=== PATIENT | male | born 1970 | race Two or more races ===

== ENCOUNTER 2018-02-13 23:01 | Emergency (ER) | payer SELFPAY ==
[~2018-02-13] VITALS: Ht 167.6 cm; Wt 81.0 kg
[2018-02-13 23:10] VITALS: BP 134/77
[2018-02-14] MEDS ORDERED: ALBUTEROL/IPRATROPIUM 2.5MG/0.5MG, 3 ML NPPB ONE (00:30)
[2018-02-14 00:33] LABS: BASOPHILS # (AUTO) 0.04 x10^3/uL (0-0.1); BASOPHILS % (AUTO) 0 % (0-1); EOSINOPHILS # (AUTO) 0.47 x10^3/uL (0-0.4); EOSINOPHILS % (AUTO) 4 % (1-7); LYMPHOCYTES # (AUTO) 2.26 x10^3/uL (1-3.4); LYMPHOCYTES % (AUTO) 19 % (22-44); MD NO; MEAN CORPUSCULAR HEMOGLOBIN 31.4 pg (27.5-34.5); MEAN CORPUSCULAR HGB CONC 33.7 g/dL (33.2-36.2); MEAN PLATELET VOLUME 9.1 fL (7.4-10.4); MONOCYTES # (AUTO) 0.61 x10^3/uL (0.2-0.8); MONOCYTES % (AUTO) 5 % (2-9); NEUTROPHILS # (AUTO) 8.68 x10^3/uL (1.8-6.8); NEUTROPHILS % (AUTO) 72 % (42-75); PLATELET COUNT 239 x10^3/uL (130-400)
[2018-02-14 00:34] LABS: ALANINE AMINOTRANSFERASE 33 U/L (12-78); ANION GAP 10 mmol/L (5-15); CALCIUM 8.2 mg/dL (8.5-10.1); CHLORIDE 107 mmol/L (98-107); CREATININE 0.67 mg/dL (0.7-1.3)
[2018-02-14 00:39] LABS: ALKALINE PHOSPHATASE 73 U/L (45-117); BILIRUBIN,TOTAL 0.3 mg/dL (0.2-1.0); TOTAL PROTEIN 7.6 g/dL (6.4-8.2); TROPONIN I < 0.015 ng/mL (0.000-0.045)
[2018-02-14 01:25] LABS: MICROSCOPIC NOT IND
[2018-02-14 01:29] LABS: CULTURE INDICATED? NO
== END 2018-02-14 02:00 | disposition home or self-care (01) ==
LOC: ED 23:59
DX: J20.9 Acute bronchitis, unspecified (principal); R07.9 Chest pain, unspecified; F17.200 Nicotine dependence, unspecified, uncomplicated; F10.10 Alcohol abuse, uncomplicated
CPT/HCPCS: 36415; 71046; 80053; 81003; 83880; 84484; 85025; 93005; 94640; 99285; 99406; J7620